=== PATIENT | male | born 1965 | race Caucasian/White ===

== ENCOUNTER 2018-04-07 13:49 | Emergency (ER) | payer OTHER ==
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
[2018-04-07] MEDS ORDERED: HYDROCODONE/ACETAMINOPHEN 10-325 MG TABLET PO ONE (16:21)
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
[2018-04-07 17:36] VITALS: BP 162/91
== END 2018-04-07 17:37 | disposition home or self-care (01) ==
LOC: ER 13:49
DX: S93.432A Sprain of tibiofibular ligament of left ankle, initial encounter (principal); S20.212A Contusion of left front wall of thorax, initial encounter; R07.81 Pleurodynia; R07.89 Other chest pain; R07.9 Chest pain, unspecified; R05 Cough; M25.572 Pain in left ankle and joints of left foot; V89.9XXA Person injured in unspecified vehicle accident, initial encounter; F17.210 Nicotine dependence, cigarettes, uncomplicated
CPT/HCPCS: 99283; 73610; 71046; L1902